=== PATIENT | female | born 1980 ===

== ENCOUNTER 2020-02-08 07:55 | Outpatient (RCR) | payer BC, SELFPAY | END 2020-02-08 23:55 | disposition home or self-care (01) | LOC: HO.PHPA 07:55 | PROVIDERS: Visit Provider Psychiatry & Neurology Psychiatry | DX: F33.2 Major depressive disorder, recurrent severe without psychotic features (principal); F43.10 Post-traumatic stress disorder, unspecified ==

== ENCOUNTER 2020-06-16 09:15 | Outpatient (RCR) | payer BC, SELFPAY ==
--- NOTE | 2020-05-31 12:58 | PC.ADMIT ---
Patient self referred to the PHP program d/t increase in depression with passive SI (denied plan or intent), increased anxiety with panic attacks, and increased in PTSD sxs. Patient experiencing much grief as she reports losing 11 friends most of whom from suicide attempts via overdose and the loss of her 2 dogs. Patient reports more recently she lost a friend to Covid. Patient has health issues and is afraid to go outside or to the gym in fear of getting the virus. She stated she did receive the Covid vaccine however knows it is possible to still get the virus thus has been isolating. Patient reports using marijuana to cope, smoking anywhere from a few hits up to 2-3 bowls a night. Patient also reports that she is not taking care of her health specifically she has not been talking her blood sugars daily and most recently canceled her appointment with the production support specialist. Patient DX with insulin dependent diabetes. Patient has a history of non-compliance regarding taking care of her health issues. Feeling guilt and shame regarding not taking care of herself. Patient is aware it is not to late to start caring for herself and to take small steps. Talked about going outside and walking her dog. Patient encouraged to reschedule her appointment with the production support specialist and to start taking her blood sugars. Patient reports she is waiting for her PCP to email her back regarding antibody testing for the covid vaccine and checking her A1C. Patient also has been putting off appointments with the dentist and gel coat sprayer d/t fear of nena Covid. Patient presents with depressed mood anxious affect. Discussed and educated patient regarding heavy Marijuana use affecting her mental and physical health. Patient reports that she has cut use down as in the beginning of the pandemic patient reports smoking all day about 10 bowls daily. Patient does want to cut down as she stated she has been smoking too much. Reports SI denied plan or intent stated she would never act on the thoughts.
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
[2020-05-31 13:21] VITALS: BMI 49.4
--- NOTE | 2020-06-03 14:55 | PC.NURSE ---
I called and spoke to pt about schedule and aftercare plans. She expressed concern about how she might be doing in late June when her therapist goes on vacation for two weeks (07/04) and just following the for her friend (07/02). We discussed possible options for support at that time, including [facility] if needed (since she will have recently discharged from our [facility] and to try a different program), or a respite stay at [facility] or the [facility] program (since she wants to avoid inpatient and doesn't want to go to [facility] where she used to work). We discussed length of stay in [facility] and made plans for pt to discharge on June 20. Pt appeared to feel good/content with these possibilities.
--- NOTE | 2020-06-15 11:42 | PC.NURSE ---
Clinician reported pt left first group a few minutes early and she did not attend the second group. Called pt. She reported feeling physically ill and passively suicidal but all of her medication is locked in a lock box that her partner has the guzmán to. She reported being safe and she would call crisis if needed. She will return to programming tomorrow.
--- NOTE | 2020-06-16 10:45 | PC.NURSE ---
During the first group today, Antonina shared that she found a new therapist who specializes in DID. She has made an appt, and was pleased about this, as her therapist is planning an extended leave and might close her practice (per pt). Antonina also spoke to staff and has declined to see the med provider as part of her PHP treatment. She plans to continue treatment with her outpatient med provider.
--- NOTE | 2020-06-16 15:24 | HO.PHPPROGNO ---
Subjective Subjective Date of Service: 06/16/20 Reason For Visit: depression Interim History: PATIENT NO SHOWED Diagnostics Vital Signs (24Hr): Body Mass Index 49.4 Assessment & Plan Certification I certify that partial hospital treatment is medically necessary due to the symptoms and problems resulting from the patient's mental illness and the failure to treat the patient at the partial hospital level of care would likely result in the patient requiring inpatient psychiatric care which could not be prevented at a less intensive level of care. PATIENT NO SHOWED FOR THE APPOINTMENT Greater than 50% of the session was spent on counseling and/or coordination of care Discharge Plan Discharge Attending provider: Dexter Freeman Medications: No Action cyclobenzaprine 10 mg Tablet 10 mg PO TID PRN (Reason: Muscle Spasm) RF: 0 lamotrigine [Lamictal] 150 mg Tablet 150 mg PO DAILY RF: 0 diphenhydramine HCl [Benadryl] 50 mg Capsule 50 mg PO BEDTIME RF: 0 ondansetron HCl [Zofran] 4 mg Tablet 8 mg PO Q8H RF: 0 clonazepam [Klonopin] 0.5 mg Tablet 0.5 mg PO BID PRN (Reason: Anxiety) RF: 0 albuterol sulfate [ProAir HFA] 90 mcg/actuation Hfa Aerosol Inhaler 2 puff INHALATION Q4H PRN (Reason: Shortness Of Breath) RF: 0 duloxetine [Cymbalta] 30 mg Capsule,Delayed Release(Dr/Ec) 30 mg PO DAILY RF: 0 duloxetine [Cymbalta] 60 mg Capsule,Delayed Release(Dr/Ec) 60 mg PO DAILY RF: 0 melatonin 10 mg Tablet 10 mg PO BEDTIME PRN (Reason: Insomnia) RF: 0 Toujeo SoloStar U-300 Insulin 300 unit/mL (1.5 mL) Insulin Pen 75 unit SUBCUT DAILY RF: 0 fluticasone propion-salmeterol [AirDuo RespiClick] 232-14 mcg/actuation Aerosol Powdr Breath Activated 1 inh INHALATION BID RF: 0
--- NOTE | 2020-06-17 07:12 | PC.NURSE ---
I received a message from the client stating that she would not be returning because she feels she talks too much and takes space in groups . She has found an outpatient therapist and will manage on her own.
--- NOTE | 2020-06-17 08:04 | PC.NURSE ---
I left a message for the client acknowledging that I received her message that she has decided to leave PHP at this time.
== END 2020-06-16 23:55 | disposition left against medical advice (07) ==
LOC: HO.PHPA 09:15
PROVIDERS: Visit Provider Psychiatry & Neurology Psychiatry
DX: F43.12 Post-traumatic stress disorder, chronic (principal)
CPT/HCPCS: 90791; 90853; 99213

== ENCOUNTER 2022-04-05 12:57 | Outpatient (RCR) | payer OTHER, SELFPAY | END 2022-04-05 23:59 | disposition home or self-care (01) | LOC: HO.PHPA 12:57 | PROVIDERS: Visit Provider Psychiatry & Neurology Psychiatry | DX: F33.2 Major depressive disorder, recurrent severe without psychotic features (principal); F43.10 Post-traumatic stress disorder, unspecified | CPT/HCPCS: 90791 ==